=== PATIENT | female | born 1975 | race Hispanic/Latino ===

== ENCOUNTER → 2024-07-30 | Outpatient (CLI) | payer BC, SELFPAY ==
[~2024-07-30] MED LIST: IOHEXOL 350 MG/ML 100ML INFUS..BTL IV ONE
--- NOTE | 2024-07-30 13:49 | HMCIMG ---
CT CARDIAC ANGIO W/CONT. CCTA HISTORY: Ischemic cardiomyopathy COMPARISON: None TECHNIQUE: Multiple sequential axial images of the chest were obtained along with the CT angiogram of the chest study. Patient was given 100 cc of Omnipaque through intravenous route. FINDINGS: There is no evidence of pulmonary nodule or parenchymal disease. No pleural effusion or pericardial effusion is seen. There is no evidence of pneumothorax. There are normal size mediastinal and hilar lymph nodes. The heart is borderline enlarged. Degenerative changes of the thoracolumbar spine are present. A small hiatal hernia is seen. IMPRESSION: 1. No evidence of pulmonary nodule or effusion is seen. Please see CT angiogram report of coronary arteries.
== END | disposition home or self-care (01) ==
LOC: CANPRECLI → RAH 09:50
PROVIDERS: ATTEND Internal Medicine Cardiovascular Disease
DX: I25.5 Ischemic cardiomyopathy (principal); K44.9 Diaphragmatic hernia without obstruction or gangrene; M47.815 Spondylosis without myelopathy or radiculopathy, thoracolumbar region
CPT/HCPCS: 75574; Q9967